=== PATIENT | male | born 1965 | race Caucasian/White ===

== ENCOUNTER 2016-08-28 09:24 | Day surgery (SDC) | payer BC ==
[2016-08-23 10:49] VITALS: BMI 45.1
[2016-08-28] MEDS ORDERED: PROPOFOL 20 ML ONE ×2 (09:38)
[2016-08-28 11:27] VITALS: TEMP 98.2
[2016-08-28 11:28] VITALS: BP 116/71; PULSE 72
== END 2016-08-28 11:29 | disposition home or self-care (01) ==
LOC: FASU-ENDO 09:24
PROVIDERS: ATTEND Internal Medicine Gastroenterology
PROC: 0DJD8ZZ Inspection of Lower Intestinal Tract, Via Natural or Artificial Opening Endoscopic (ICD-10-PCS; principal; 2016-08-28 10:36)
DX: Z86.010 Personal history of colon polyps (principal)